=== PATIENT | female | born 1960 | race Two or more races ===

== ENCOUNTER → 2023-10-31 | Emergency (ER) | payer OTHER ==
[~2023-10-31] VITALS: Ht 160 cm; Wt 72.6 kg
[~2023-10-31] MED LIST: CIPROFLOXACIN IN 5 % DEXTROSE 400 MG/200 ML PIGGYBAG IV ONE; FAMOTIDINE/PF 20 MG/2 ML VIAL IV ONE; METRONIDAZOLE/SODIUM CHLORIDE 500 MG/100 ML PIGGYBACK IV ONE; ONDANSETRON HCL 2 MG/ML VIAL IV ONE
[2023-10-31 09:45] LABS: HEMATOCRIT 36.5 % (36.0-45.00); HEMOGLOBIN 12.4 g/dL (12.0-15.00); MEAN CELL VOLUME 84.2 fL (80.00-100.00); MEAN CORPUSCULAR HEMOGLOBIN 28.5 pg (27.00-32.0); MEAN CORPUSCULAR HGB CONC 33.9 g/dl (32.0-36.0); PLATELET COUNT 270 K/uL (150-450); RED BLOOD COUNT 4.34 M/uL (4.00-6.00); RED CELL DISTRIBUTION WIDTH 14.2 % (11.5-14.5)
[2023-10-31 10:06] LABS: PH,URINE 5.5 (5.0-8.0); URINE APPEARANCE Cloudy; URINE BILIRRUBIN Negative (NEGATIVE); URINE BLOOD Large; URINE COLOR Dark Yellow; URINE GLUCOSE Negative (NEGATIVE); URINE KETONE Trace (NEGATIVE); URINE LEUKOCYTE Moderate; URINE NITRATE Negative; URINE PROTEIN 30 (NEGATIVE)
[2023-10-31 10:11] LABS: URINE BACTERIA 1649.3 uL (0.0-1933); URINE CAST 7.32 uL (0.0-1.40); URINE EPITHELIAL CELLS 74.1 uL (0.0-38.8); URINE RBC 162.6 uL (0.0-20.8); URINE WBC 102.3 uL (0.0-23.2)
[2023-10-31 10:47] LABS: CALCIUM 9.4 mg/dL (8.5-10.1); CREATININE SERUM 1.06 mg/dL (0.55-1.02); GFR 52.36; POTASSIUM 3.96 mEq/L (3.5-5.1)
== END | disposition home or self-care (01) ==
LOC: ER 08:44
PROVIDERS: Emergency Medicine
DX: R10.84 Generalized abdominal pain (principal)